=== PATIENT | male | born 1945 | race Two or more races ===

== ENCOUNTER 2024-07-03 14:46 | Inpatient (IN) | payer MEDICARE, OTHER ==
[~2024-07-03] VITALS: Ht 172.7 cm; Wt 110.9 kg
[2024-07-03] MEDS: IV NORMAL SALINE 1000 ML BAG IV ONE (14:59)
[2024-07-03 15:03] LABS: ABG BASE EXCESS 4.9 mmol/L (-2.0-3.0); ABG HCO3 34.7 mmol/L (21.0-28.0); ABG PCO2 74.4 mmHg (35.0-48.0); ABG PH 7.286 (7.350-7.450); ABG PO2 129.1 mmHg (83.0-108.0); ABG TOTAL HEMOGLOBIN 16.2 G/dL (13.5-17.5); AaDO2 98.1 mmHg; COHb 1.2 % (0.5-1.5); MetHb 0.2 % (0.0-1.5); O2Hb 97.2 % (94.0-98.0)
[2024-07-03 15:09] LABS: BASOPHILS % (AUTO) 0.2 % (0.0-2.0); EOSINOPHILS % (AUTO) 0.6 % (0.0-7.0); HEMATOCRIT 46.2 % (36.7-47.1); HEMOGLOBIN 15.2 g/dL (12.5-16.3); LYMPHOCYTES # (AUTO) 0.6 K/uL (0.8-4.8); LYMPHOCYTES % (AUTO) 15.2 % (20.5-51.5); MEAN CORPUSCULAR HEMOGLOBIN 28.7 uug (23.8-33.4); MEAN CORPUSCULAR HGB CONC 33 g/dL (32.5-36.3); MEAN CORPUSCULAR VOLUME 87.4 fL (73.0-96.2); MONOCYTES # (AUTO) 0.4 K/uL (0.1-1.30); MONOCYTES % (AUTO) 10.7 % (0.0-11.0); NEUTROPHILS # (AUTO) 2.9 K/uL (1.8-8.9); NEUTROPHILS % (AUTO) 73.3 % (38.5-71.5); PLATELET COUNT (AUTO) 101 K/uL (152-348); RED BLOOD CELL COUNT(AUTO) 5.28 MIL/uL (4.06-5.63); RED CELL DISTRIBUTION WIDTH 14.6 % (12.1-16.2)
[2024-07-03 15:28] LABS: CALCIUM 8.2 mg/dL (8.5-10.1); CARBON DIOXIDE 36 mmol/L (21-32); CHLORIDE 100 mmol/L (98-107); CREATININE 0.9 mg/dL (0.6-1.3); GLUCOSE 107 mg/dL (74-106); POTASSIUM 4.4 mmol/L (3.5-5.1); SODIUM SERUM 139 mmol/L (136-145); UREA NITROGEN, BLOOD 12 mg/dL (7-18)
[2024-07-03 15:34] LABS: DIFFERENTIAL COMMENT 1
[2024-07-03 15:41] LABS: ALANINE AMINOTRANSFERASE 25 U/L (16-63); ALBUMIN 2.6 g/dL (3.4-5.0); ALKALINE PHOSPHATASE 88 U/L (50-136); ASPARTATE AMINOTRANSFERASE 16 U/L (15-37); BILIRUBIN,DIRECT 0.2 mg/dL (0.0-0.2); BILIRUBIN,TOTAL 0.5 mg/dL (0.2-1.0); NT-PRO BNP 1760 pg/mL (0-125); TOTAL PROTEIN, SERUM 7.1 g/dL (6.4-8.2)
[2024-07-03] MEDS ORDERED: methylPREDNISolone SOD SUCC 125 MG/2 ML VIAL ONE (16:38)
[2024-07-03] MEDS: methylPREDNISolone SOD SUCC 125 MG/2 ML VIAL IV ONE (16:46)
[2024-07-03 16:52] LABS: ABG HCO3 33.2 mmol/L (21.0-28.0); ABG PCO2 77.6 mmHg (35.0-48.0); ABG PH 7.249 (7.350-7.450); ABG PO2 183.6 mmHg (83.0-108.0); ABG SITE LEFT RADIAL; ABG TOTAL HEMOGLOBIN 15.8 G/dL (13.5-17.5); COHb 0.4 % (0.5-1.5); MetHb 0.4 % (0.0-1.5); O2Hb 98.3 % (94.0-98.0)
[2024-07-03] MEDS: CEFTRIAXONE 2 G in IV DEXTROSE 5% 100 ML IV ONE (17:15)
[2024-07-03 17:55] LABS: *BILIRUBIN,URIN NEGATIVE (NEGATIVE); *BLOOD, URINE 2+ (NEGATIVE); *CLARITY,URINE CLEAR (CLEAR); *COLOR,URINE YELLOW (YELLOW); *KETONES,URINE TRACE (NEGATIVE); LEUKOCYTE ESTERASE ,URINE NEGATIVE (NEGATIVE); NITRITE, URINE NEGATIVE (NEGATIVE); UGLUCOSE NEGATIVE (NEGATIVE)
[2024-07-03] MEDS ORDERED: REMEDY ESSENTIAL ZINC PASTE 113 GM TP PRN (18:00)
[2024-07-03 18:13] LABS: *PROTEIN,URINE 3+ (NEGATIVE)
[2024-07-03] MEDS ORDERED: AZITHROMYCIN 500MG/ D5W 250ML IVPB **ER PYXIS ONLY IV ONE ×2 (18:14→21:21)
[2024-07-03] MEDS: ENOXAPARIN SODIUM 40 MG/0.4 ML DISP.SYRIN SQ SCH (18:15)
[2024-07-03] MEDS: AZITHROMYCIN IV 500 MG in IV DEXTROSE 5% 250 ML IV SCH (18:15)
[2024-07-03 18:26] LABS: BACTERIA,URINE FEW /HPF (NONE SEEN); RBC,URINE 20-50 /HPF (0-3); SQUAMOUS EPITHELIAL CELL,UR FEW /HPF (NONE SEEN); WBC,URINE 0-3 /HPF (0-3)
[2024-07-03] MEDS ORDERED: AZITHROMYCIN IV 500 MG in IV DEXTROSE 5% 250 ML IV SCH (19:31)
[2024-07-03] MEDS ORDERED: methylPREDNISolone SOD SUCC 40 MG/ML VIAL IV SCH (22:00)
[2024-07-03] MEDS ORDERED: ALBU2.5V38 NEB (22:08)
[2024-07-03] MEDS ORDERED: LOSA50TA39 PO (22:08)
[2024-07-03] MEDS ORDERED: IPRA0.2S48 NEB (22:08)
[2024-07-03] MEDS ORDERED: ATOR40TA PO (22:08)
[2024-07-03] MEDS ORDERED: SITA50TA GT (22:08)
[2024-07-03] MEDS ORDERED: LEVO100T10 PO (22:08)
[2024-07-03] MEDS ORDERED: FURO40TA5 PO (22:08)
[2024-07-03] MEDS ORDERED: PENT400T17 PO (22:08)
[2024-07-03] MEDS ORDERED: CELE200C PO (22:08)
[2024-07-03] MEDS: FUROSEMIDE 40 MG/4 ML VIAL IV ONE (22:15)
[2024-07-03] MEDS ORDERED: INSULIN REGULAR, HUMAN 1000 UNIT/10 ML VIAL SQ PRN (22:30)
[2024-07-03] MEDS ORDERED: DEXTROSE 50% 50 ML DISP.SYRIN IV PRN (22:30)
[2024-07-03 23:15] VITALS: BP 132/78; TEMP 98.6; O2SAT 98
[2024-07-03 23:29] LABS: ABG BASE EXCESS 2.6 mmol/L (-2.0-3.0); ABG HCO3 32.1 mmol/L (21.0-28.0); ABG PCO2 70.8 mmHg (35.0-48.0); ABG PH 7.274 (7.350-7.450); ABG PO2 134.1 mmHg (83.0-108.0); ABG SITE RIGHT RADIAL; ABG TOTAL HEMOGLOBIN 16.5 G/dL (13.5-17.5); AaDO2 98.2 mmHg; COHb 0.7 % (0.5-1.5); MetHb 0.4 % (0.0-1.5); O2Hb 97.6 % (94.0-98.0)
[2024-07-03 23:58] VITALS: BP 139/73; TEMP 98.5; O2SAT 96
[2024-07-04] VITALS (27 sets, daily range): BP systolic 107–135; BP diastolic 57–95; TEMP 98–98.6; O2SAT 95–100
[2024-07-04] MEDS: FUROSEMIDE 40 MG/4 ML VIAL IV ONE ×2 (00:34→09:16)
[2024-07-04] MEDS: BLOOD SUGAR DIAGNOSTIC 1 EACH STRIP VI SCH ×2 (00:44→20:57)
[2024-07-04 04:35] LABS: BASOPHILS % (AUTO) 0.2 % (0.0-2.0); HEMATOCRIT 44.8 % (36.7-47.1); LYMPHOCYTES # (AUTO) 0.5 K/uL (0.8-4.8); LYMPHOCYTES % (AUTO) 20.9 % (20.5-51.5); MEAN CORPUSCULAR HEMOGLOBIN 29.3 uug (23.8-33.4); MEAN CORPUSCULAR HGB CONC 34 g/dL (32.5-36.3); MEAN CORPUSCULAR VOLUME 87.4 fL (73.0-96.2); MONOCYTES # (AUTO) 0.1 K/uL (0.1-1.30); MONOCYTES % (AUTO) 3.9 % (0.0-11.0); NEUTROPHILS # (AUTO) 1.8 K/uL (1.8-8.9); PLATELET COUNT (AUTO) 98 K/uL (152-348); RED BLOOD CELL COUNT(AUTO) 5.13 MIL/uL (4.06-5.63); RED CELL DISTRIBUTION WIDTH 14.5 % (12.1-16.2); WHITE BLOOD COUNT (AUTO) 2.4 K/uL (3.6-10.2)
[2024-07-04 04:39] LABS: DIFFERENTIAL COMMENT 1
[2024-07-04 04:53] LABS: CALCIUM 8.1 mg/dL (8.5-10.1); CARBON DIOXIDE 35 mmol/L (21-32); CHLORIDE 104 mmol/L (98-107); CREATININE 0.8 mg/dL (0.6-1.3); GLUCOSE 145 mg/dL (74-106); MAGNESIUM 1.9 mg/dL (1.8-2.4); PHOSPHOROUS 4.9 mg/dL (2.5-4.9); POTASSIUM 4.4 mmol/L (3.5-5.1); SODIUM SERUM 143 mmol/L (136-145); UREA NITROGEN, BLOOD 15 mg/dL (7-18)
[2024-07-04] MEDS: DILTIAZEM HCL 25 MG IV IV ONE (06:43)
[2024-07-04] MEDS: ENOXAPARIN SODIUM 40 MG/0.4 ML DISP.SYRIN SQ SCH (09:00)
[2024-07-04] MEDS: methylPREDNISolone SOD SUCC 40 MG/ML VIAL IV SCH (09:15)
[2024-07-04] MEDS: PANTOPRAZOLE SODIUM 40 MG VIAL IV SCH (09:15)
[2024-07-04] MEDS: CEFTRIAXONE 1 G in IV DEXTROSE 5% 50 ML IV SCH (09:16)
[2024-07-04] MEDS ORDERED: DEXTROSE 50% 50 ML DISP.SYRIN IV PRN (12:45)
[2024-07-04] MEDS: LEVALBUTEROL HCL NEB 0.63 MG/3 ML NEBU NEB SCH (13:30)
[2024-07-04] MEDS: IPRATROPIUM BROMIDE 0.5 MG/2.5 ML NEBU NEB SCH (13:30)
[2024-07-04] MEDS ORDERED: AMIODARONE HCL IV 450 MG in IV DEXTROSE 5% 250 ML IV SCH (14:45)
[2024-07-04] MEDS: AMIODARONE HCL IV 150 MG in IV DEXTROSE 5% 100 ML IV ONE (15:34)
[2024-07-04] MEDS: AMIODARONE HCL IV 450 MG in IV DEXTROSE 5% 250 ML IV PRN (15:35)
[2024-07-04] MEDS: AZITHROMYCIN IV 500 MG in IV DEXTROSE 5% 250 ML IV SCH (20:46)
[2024-07-04] MEDS: INSULIN REGULAR, HUMAN 1000 UNIT/10 ML VIAL SQ PRN (21:06)
[2024-07-05] VITALS (25 sets, daily range): BP systolic 104–136; BP diastolic 64–94; TEMP 98–98.6; O2SAT 94–100
[2024-07-05 05:35] LABS: BASOPHILS % (AUTO) 0.1 % (0.0-2.0); EOSINOPHILS % (AUTO) 0.1 % (0.0-7.0); HEMATOCRIT 43.3 % (36.7-47.1); HEMOGLOBIN 14.7 g/dL (12.5-16.3); LYMPHOCYTES # (AUTO) 1.2 K/uL (0.8-4.8); LYMPHOCYTES % (AUTO) 19.2 % (20.5-51.5); MEAN CORPUSCULAR HEMOGLOBIN 29.3 uug (23.8-33.4); MEAN CORPUSCULAR HGB CONC 34 g/dL (32.5-36.3); MEAN CORPUSCULAR VOLUME 86.4 fL (73.0-96.2); MONOCYTES # (AUTO) 0.6 K/uL (0.1-1.30); MONOCYTES % (AUTO) 9.9 % (0.0-11.0); NEUTROPHILS # (AUTO) 4.5 K/uL (1.8-8.9); NEUTROPHILS % (AUTO) 70.7 % (38.5-71.5); PLATELET COUNT (AUTO) 115 K/uL (152-348); RED BLOOD CELL COUNT(AUTO) 5.01 MIL/uL (4.06-5.63); RED CELL DISTRIBUTION WIDTH 14.2 % (12.1-16.2); WHITE BLOOD COUNT (AUTO) 6.3 K/uL (3.6-10.2)
[2024-07-05 05:48] LABS: CALCIUM 8.2 mg/dL (8.5-10.1); CARBON DIOXIDE 36 mmol/L (21-32); CHLORIDE 100 mmol/L (98-107); GLUCOSE 130 mg/dL (74-106); POTASSIUM 4.4 mmol/L (3.5-5.1); SODIUM SERUM 139 mmol/L (136-145); UREA NITROGEN, BLOOD 31 mg/dL (7-18)
[2024-07-05 05:59] LABS: DIFFERENTIAL COMMENT 1
[2024-07-05 08:34] LABS: ABG BASE EXCESS 7.1 mmol/L (-2.0-3.0); ABG HCO3 34.4 mmol/L (21.0-28.0); ABG PCO2 58.7 mmHg (35.0-48.0); ABG PH 7.386 (7.350-7.450); ABG SITE RIGHT RADIAL; ABG TOTAL HEMOGLOBIN 15.9 G/dL (13.5-17.5); AaDO2 98.6 mmHg; COHb 0.6 % (0.5-1.5); MetHb 0.3 % (0.0-1.5); O2Hb 97.9 % (94.0-98.0)
[2024-07-05] MEDS: FUROSEMIDE 40 MG/4 ML VIAL IV SCH ×2 (09:27→13:00)
[2024-07-05] MEDS ORDERED: APIX5TAB PO (11:29)
[2024-07-05] MEDS: AMIODARONE HCL IV 150 MG in IV DEXTROSE 5% 100 ML IV ONE (13:52)
[2024-07-05] MEDS ORDERED: IPRATROPIUM BROMIDE 0.5 MG/2.5 ML NEBU NEB PRN (14:45)
[2024-07-05] MEDS: MAGNESIUM HYDROXIDE 30 ML LIQUID UDC PO PRN (17:35)
[2024-07-05] MEDS: APIXABAN 5 MG TABLET PO SCH (20:20)
[2024-07-06] VITALS (18 sets, daily range): BP systolic 90–144; BP diastolic 53–99; TEMP 97.5–98.8; O2SAT 93–100
[2024-07-06 05:23] LABS: BASOPHILS % (AUTO) 0.2 % (0.0-2.0); EOSINOPHILS % (AUTO) 0.1 % (0.0-7.0); HEMATOCRIT 44.3 % (36.7-47.1); HEMOGLOBIN 15.2 g/dL (12.5-16.3); LYMPHOCYTES # (AUTO) 1.4 K/uL (0.8-4.8); LYMPHOCYTES % (AUTO) 19.8 % (20.5-51.5); MEAN CORPUSCULAR HEMOGLOBIN 29.5 uug (23.8-33.4); MEAN CORPUSCULAR HGB CONC 34 g/dL (32.5-36.3); MEAN CORPUSCULAR VOLUME 86.2 fL (73.0-96.2); MONOCYTES # (AUTO) 0.5 K/uL (0.1-1.30); MONOCYTES % (AUTO) 7.7 % (0.0-11.0); NEUTROPHILS # (AUTO) 5.1 K/uL (1.8-8.9); NEUTROPHILS % (AUTO) 72.2 % (38.5-71.5); PLATELET COUNT (AUTO) 128 K/uL (152-348); RED BLOOD CELL COUNT(AUTO) 5.14 MIL/uL (4.06-5.63); RED CELL DISTRIBUTION WIDTH 14.4 % (12.1-16.2); WHITE BLOOD COUNT (AUTO) 7.1 K/uL (3.6-10.2)
[2024-07-06 05:31] LABS: CALCIUM 8.4 mg/dL (8.5-10.1); CARBON DIOXIDE 40 mmol/L (21-32); CHLORIDE 99 mmol/L (98-107); CREATININE 1.1 mg/dL (0.6-1.3); GLUCOSE 124 mg/dL (74-106); PHOSPHOROUS 3.4 mg/dL (2.5-4.9); SODIUM SERUM 141 mmol/L (136-145); UREA NITROGEN, BLOOD 32 mg/dL (7-18)
[2024-07-06 05:58] LABS: DIFFERENTIAL COMMENT 1
[2024-07-06] MEDS: LEVOTHYROXINE SODIUM 100 MCG TABLET PO SCH (06:59)
[2024-07-06] MEDS: MIRALAX 17 GM POWD.PACK PO SCH (08:41)
[2024-07-06] MEDS: LOSARTAN POTASSIUM 50 MG TABLET PO SCH (08:42)
[2024-07-06] MEDS: LINAGLIPTIN 5 MG TABLET GT SCH (08:42)
[2024-07-06] MEDS: PENTOXIFYLLINE 400 MG TABLET.SA PO SCH (08:43)
[2024-07-06] MEDS: CELECOXIB 200 MG CAPSULE PO SCH (08:43)
[2024-07-06] MEDS: CEFTRIAXONE 2 G in IV DEXTROSE 5% 100 ML IV SCH (08:54)
[2024-07-06] MEDS ORDERED: Medication Not On Formulary EA (Sitagliptin Phosphate (Januvia) 50 MG) GT SCH (09:00)
[2024-07-06] MEDS: ONDANSETRON 4 MG/2 ML VIAL IV PRN (10:39)
[2024-07-06 17:44] LABS: *BILIRUBIN,URIN NEGATIVE (NEGATIVE); *BLOOD, URINE 2+ (NEGATIVE); *CLARITY,URINE CLEAR (CLEAR); *COLOR,URINE YELLOW (YELLOW); *KETONES,URINE NEGATIVE (NEGATIVE); *PROTEIN,URINE NEGATIVE (NEGATIVE); *UROBILINOGEN,URINE 0.2 E.U./dl (NORMAL); LEUKOCYTE ESTERASE ,URINE NEGATIVE (NEGATIVE); NITRITE, URINE NEGATIVE (NEGATIVE); UGLUCOSE NEGATIVE (NEGATIVE)
[2024-07-06 17:47] LABS: WBC,URINE 0-3 /HPF (0-3)
[2024-07-06] MEDS: AZITHROMYCIN 250 MG TABLET PO SCH (20:33)
[2024-07-06] MEDS: ATORVASTATIN 40 MG TABLET PO SCH (20:45)
[2024-07-07] VITALS (15 sets, daily range): BP systolic 111–142; BP diastolic 49–68; TEMP 97–98.5; O2SAT 96–100
[2024-07-07] MEDS: PANTOPRAZOLE SODIUM 40 MG TABLET.DR PO SCH (06:19)
[2024-07-07 07:00] LABS: BASOPHILS % (AUTO) 0.1 % (0.0-2.0); EOSINOPHILS % (AUTO) 0.2 % (0.0-7.0); HEMATOCRIT 45.6 % (36.7-47.1); HEMOGLOBIN 15.2 g/dL (12.5-16.3); LYMPHOCYTES # (AUTO) 1.3 K/uL (0.8-4.8); LYMPHOCYTES % (AUTO) 18.9 % (20.5-51.5); MEAN CORPUSCULAR HEMOGLOBIN 29.1 uug (23.8-33.4); MEAN CORPUSCULAR HGB CONC 33 g/dL (32.5-36.3); MEAN CORPUSCULAR VOLUME 87.2 fL (73.0-96.2); MONOCYTES # (AUTO) 0.5 K/uL (0.1-1.30); MONOCYTES % (AUTO) 6.5 % (0.0-11.0); NEUTROPHILS # (AUTO) 5.3 K/uL (1.8-8.9); NEUTROPHILS % (AUTO) 74.3 % (38.5-71.5); PLATELET COUNT (AUTO) 143 K/uL (152-348); RED BLOOD CELL COUNT(AUTO) 5.23 MIL/uL (4.06-5.63); RED CELL DISTRIBUTION WIDTH 14.4 % (12.1-16.2); WHITE BLOOD COUNT (AUTO) 7.1 K/uL (3.6-10.2)
[2024-07-07 07:04] LABS: CALCIUM 8.6 mg/dL (8.5-10.1); CARBON DIOXIDE 40 mmol/L (21-32); CHLORIDE 101 mmol/L (98-107); CREATININE 0.8 mg/dL (0.6-1.3); GLUCOSE 110 mg/dL (74-106); MAGNESIUM 2.4 mg/dL (1.8-2.4); PHOSPHOROUS 3.8 mg/dL (2.5-4.9); POTASSIUM 4.3 mmol/L (3.5-5.1); SODIUM SERUM 141 mmol/L (136-145); UREA NITROGEN, BLOOD 25 mg/dL (7-18)
[2024-07-07 08:06] LABS: ABG BASE EXCESS 9.6 mmol/L (-2.0-3.0); ABG HCO3 36.4 mmol/L (21.0-28.0); ABG PCO2 56.9 mmHg (35.0-48.0); ABG PH 7.424 (7.350-7.450); ABG PO2 89.8 mmHg (83.0-108.0); ABG TOTAL HEMOGLOBIN 16.2 G/dL (13.5-17.5); AaDO2 96.9 mmHg; COHb 1.1 % (0.5-1.5); MetHb 0.1 % (0.0-1.5); O2Hb 95.7 % (94.0-98.0)
[2024-07-07 08:21] LABS: DIFFERENTIAL COMMENT 1
[2024-07-07] MEDS: ACETAzolamide SODIUM 500 MG VIAL IV SCH (10:34)
[2024-07-08] VITALS (16 sets, daily range): BP systolic 104–124; BP diastolic 52–64; TEMP 97.5–98.7; O2SAT 95–100
[2024-07-08 06:57] LABS: BASOPHILS % (AUTO) 0.2 % (0.0-2.0); EOSINOPHILS # (AUTO) 0.2 K/uL (0.0-0.7); EOSINOPHILS % (AUTO) 1.9 % (0.0-7.0); HEMATOCRIT 35.3 % (36.7-47.1); HEMOGLOBIN 11.7 g/dL (12.5-16.3); LYMPHOCYTES # (AUTO) 1.1 K/uL (0.8-4.8); LYMPHOCYTES % (AUTO) 9.9 % (20.5-51.5); MEAN CORPUSCULAR HEMOGLOBIN 27.6 uug (23.8-33.4); MEAN CORPUSCULAR HGB CONC 33 g/dL (32.5-36.3); MEAN CORPUSCULAR VOLUME 83.1 fL (73.0-96.2); MONOCYTES # (AUTO) 0.5 K/uL (0.1-1.30); MONOCYTES % (AUTO) 4.6 % (0.0-11.0); NEUTROPHILS # (AUTO) 9.1 K/uL (1.8-8.9); NEUTROPHILS % (AUTO) 83.4 % (38.5-71.5); PLATELET COUNT (AUTO) 219 K/uL (152-348); RED BLOOD CELL COUNT(AUTO) 4.25 MIL/uL (4.06-5.63); RED CELL DISTRIBUTION WIDTH 16.7 % (12.1-16.2); WHITE BLOOD COUNT (AUTO) 10.9 K/uL (3.6-10.2)
[2024-07-08 07:17] LABS: DIFFERENTIAL COMMENT 1
[2024-07-08 07:19] LABS: ALANINE AMINOTRANSFERASE 65 U/L (16-63); ALBUMIN 1.7 g/dL (3.4-5.0); ALKALINE PHOSPHATASE 83 U/L (50-136); ASPARTATE AMINOTRANSFERASE 35 U/L (15-37); BILIRUBIN,DIRECT 0.2 mg/dL (0.0-0.2); BILIRUBIN,TOTAL 0.6 mg/dL (0.2-1.0); CALCIUM 8.3 mg/dL (8.5-10.1); CARBON DIOXIDE 28 mmol/L (21-32); CHLORIDE 108 mmol/L (98-107); CREATININE 0.6 mg/dL (0.6-1.3); GLUCOSE 106 mg/dL (74-106); POTASSIUM 3.9 mmol/L (3.5-5.1); SODIUM SERUM 144 mmol/L (136-145); THYROID STIMULATING HORMONE 0.906 mIU/mL (0.358-3.740); TOTAL PROTEIN, SERUM 5.5 g/dL (6.4-8.2); UREA NITROGEN, BLOOD 21 mg/dL (7-18)
[2024-07-08 07:40] LABS: PHOSPHOROUS 3.5 mg/dL (2.5-4.9)
[2024-07-08 16:20] LABS: CHOLESTEROL 86 mg/dL (<200); HDL CHOLESTEROL 32 mg/dL (40-60); TRIGLYCERIDES 100 MG/DL (30-150)
[2024-07-08] MEDS: PROTEIN SUPPLEMENT (PROSTAT) 30 ML LIQUID PO SCH (16:21)
[2024-07-09] VITALS (13 sets, daily range): BP systolic 103–129; BP diastolic 50–89; TEMP 97.4–98.2; O2SAT 94–100
[2024-07-09 07:52] LABS: ABG BASE EXCESS 1.6 mmol/L (-2.0-3.0); ABG HCO3 28.4 mmol/L (21.0-28.0); ABG PCO2 52.5 mmHg (35.0-48.0); ABG PH 7.351 (7.350-7.450); ABG PO2 95.9 mmHg (83.0-108.0); ABG SITE RIGHT RADIAL; ABG TOTAL HEMOGLOBIN 16.5 G/dL (13.5-17.5); AaDO2 96.9 mmHg; COHb 0.4 % (0.5-1.5); MetHb 0.2 % (0.0-1.5); O2Hb 96.7 % (94.0-98.0)
[2024-07-09 08:04] LABS: BASOPHILS % (AUTO) 0.1 % (0.0-2.0); EOSINOPHILS # (AUTO) 0.1 K/uL (0.0-0.7); EOSINOPHILS % (AUTO) 1.2 % (0.0-7.0); HEMATOCRIT 47.5 % (36.7-47.1); HEMOGLOBIN 15.7 g/dL (12.5-16.3); LYMPHOCYTES # (AUTO) 1.4 K/uL (0.8-4.8); LYMPHOCYTES % (AUTO) 20.9 % (20.5-51.5); MEAN CORPUSCULAR HGB CONC 33 g/dL (32.5-36.3); MEAN CORPUSCULAR VOLUME 87.8 fL (73.0-96.2); MONOCYTES # (AUTO) 0.4 K/uL (0.1-1.30); MONOCYTES % (AUTO) 6.7 % (0.0-11.0); NEUTROPHILS # (AUTO) 4.7 K/uL (1.8-8.9); NEUTROPHILS % (AUTO) 71.1 % (38.5-71.5); PLATELET COUNT (AUTO) 165 K/uL (152-348); RED BLOOD CELL COUNT(AUTO) 5.41 MIL/uL (4.06-5.63); RED CELL DISTRIBUTION WIDTH 14.4 % (12.1-16.2); WHITE BLOOD COUNT (AUTO) 6.6 K/uL (3.6-10.2)
[2024-07-09 08:31] LABS: DIFFERENTIAL COMMENT 1
[2024-07-09] MEDS: ALBUTEROL SULFATE 1.25 MG/3 ML NEBU NEB SCH (08:33)
[2024-07-09 08:38] LABS: CALCIUM 8.5 mg/dL (8.5-10.1); CREATININE 0.8 mg/dL (0.6-1.3); GLUCOSE 97 mg/dL (74-106); MAGNESIUM 2.3 mg/dL (1.8-2.4); PHOSPHOROUS 3.8 mg/dL (2.5-4.9); UREA NITROGEN, BLOOD 25 mg/dL (7-18)
[2024-07-09 10:38] LABS: CARBON DIOXIDE 26 mmol/L (21-32); CHLORIDE 107 mmol/L (98-107); POTASSIUM 4.3 mmol/L (3.5-5.1); SODIUM SERUM 143 mmol/L (136-145)
[2024-07-09] MEDS: AMIODARONE HCL IV 150 MG in IV DEXTROSE 5% 100 ML IV ONE (16:23)
[2024-07-09] MEDS: AMIODARONE HCL IV 450 MG in IV DEXTROSE 5% 250 ML IV PRN (16:34)
[2024-07-10] VITALS (12 sets, daily range): BP systolic 104–112; BP diastolic 54–68; TEMP 97.2–98.6; O2SAT 94–99
[2024-07-10 07:14] LABS: BASOPHILS % (AUTO) 0.1 % (0.0-2.0); EOSINOPHILS # (AUTO) 0.1 K/uL (0.0-0.7); EOSINOPHILS % (AUTO) 0.9 % (0.0-7.0); HEMOGLOBIN 16.7 g/dL (12.5-16.3); LYMPHOCYTES # (AUTO) 1.6 K/uL (0.8-4.8); LYMPHOCYTES % (AUTO) 17.1 % (20.5-51.5); MEAN CORPUSCULAR HEMOGLOBIN 29.6 uug (23.8-33.4); MEAN CORPUSCULAR HGB CONC 34 g/dL (32.5-36.3); MEAN CORPUSCULAR VOLUME 86.6 fL (73.0-96.2); MONOCYTES # (AUTO) 0.5 K/uL (0.1-1.30); MONOCYTES % (AUTO) 6.1 % (0.0-11.0); NEUTROPHILS # (AUTO) 6.9 K/uL (1.8-8.9); NEUTROPHILS % (AUTO) 75.8 % (38.5-71.5); PLATELET COUNT (AUTO) 191 K/uL (152-348); RED BLOOD CELL COUNT(AUTO) 5.66 MIL/uL (4.06-5.63); RED CELL DISTRIBUTION WIDTH 14.6 % (12.1-16.2); WHITE BLOOD COUNT (AUTO) 9.1 K/uL (3.6-10.2)
[2024-07-10 07:36] LABS: DIFFERENTIAL COMMENT 1
[2024-07-10 07:52] LABS: CALCIUM 8.5 mg/dL (8.5-10.1); CARBON DIOXIDE 26 mmol/L (21-32); CHLORIDE 109 mmol/L (98-107); GLUCOSE 106 mg/dL (74-106); MAGNESIUM 2.2 mg/dL (1.8-2.4); PHOSPHOROUS 3.4 mg/dL (2.5-4.9); SODIUM SERUM 145 mmol/L (136-145); UREA NITROGEN, BLOOD 29 mg/dL (7-18)
[2024-07-10] MEDS: methylPREDNISolone SOD SUCC 40 MG/ML VIAL IV SCH (09:20)
[2024-07-10] MEDS: AMIODARONE HCL 200 MG TABLET PO SCH (20:32)
[2024-07-11] VITALS (12 sets, daily range): BP systolic 102–112; BP diastolic 58–80; TEMP 97.5–98.6; O2SAT 96–100
[2024-07-11 07:00] LABS: BASOPHILS % (AUTO) 0.2 % (0.0-2.0); EOSINOPHILS # (AUTO) 0.1 K/uL (0.0-0.7); EOSINOPHILS % (AUTO) 1.1 % (0.0-7.0); HEMATOCRIT 50.6 % (36.7-47.1); HEMOGLOBIN 17.2 g/dL (12.5-16.3); LYMPHOCYTES # (AUTO) 1.4 K/uL (0.8-4.8); LYMPHOCYTES % (AUTO) 14.6 % (20.5-51.5); MEAN CORPUSCULAR HEMOGLOBIN 29.3 uug (23.8-33.4); MEAN CORPUSCULAR HGB CONC 34 g/dL (32.5-36.3); MEAN CORPUSCULAR VOLUME 86.2 fL (73.0-96.2); MONOCYTES # (AUTO) 0.6 K/uL (0.1-1.30); MONOCYTES % (AUTO) 6.4 % (0.0-11.0); NEUTROPHILS # (AUTO) 7.6 K/uL (1.8-8.9); NEUTROPHILS % (AUTO) 77.7 % (38.5-71.5); PLATELET COUNT (AUTO) 197 K/uL (152-348); RED BLOOD CELL COUNT(AUTO) 5.87 MIL/uL (4.06-5.63); RED CELL DISTRIBUTION WIDTH 14.5 % (12.1-16.2); WHITE BLOOD COUNT (AUTO) 9.8 K/uL (3.6-10.2)
[2024-07-11 07:04] LABS: DIFFERENTIAL COMMENT 1
[2024-07-11 07:26] LABS: CALCIUM 8.2 mg/dL (8.5-10.1); CARBON DIOXIDE 28 mmol/L (21-32); CHLORIDE 107 mmol/L (98-107); CREATININE 0.8 mg/dL (0.6-1.3); GLUCOSE 103 mg/dL (74-106); MAGNESIUM 2.2 mg/dL (1.8-2.4); PHOSPHOROUS 3.5 mg/dL (2.5-4.9); POTASSIUM 3.6 mmol/L (3.5-5.1); SODIUM SERUM 141 mmol/L (136-145); UREA NITROGEN, BLOOD 26 mg/dL (7-18)
[2024-07-11] MEDS: POTASSIUM CHLORIDE 20 MEQ TAB.PRT.SR PO ONE (09:51)
[2024-07-11] MEDS: ALBUTEROL SULFATE 2.5 MG/3 ML NEBU NEB PRN (13:22)
[2024-07-11] MEDS: ACETAMINOPHEN 325 MG TABLET PO PRN (20:44)
[2024-07-12] VITALS (14 sets, daily range): BP systolic 100–119; BP diastolic 61–86; TEMP 97.5–98.3; O2SAT 94–99
[2024-07-12 07:01] LABS: BASOPHILS % (AUTO) 0.1 % (0.0-2.0); EOSINOPHILS # (AUTO) 0.1 K/uL (0.0-0.7); EOSINOPHILS % (AUTO) 0.8 % (0.0-7.0); HEMATOCRIT 49.7 % (36.7-47.1); HEMOGLOBIN 16.8 g/dL (12.5-16.3); LYMPHOCYTES # (AUTO) 1.4 K/uL (0.8-4.8); LYMPHOCYTES % (AUTO) 14.6 % (20.5-51.5); MEAN CORPUSCULAR HEMOGLOBIN 29.5 uug (23.8-33.4); MEAN CORPUSCULAR HGB CONC 34 g/dL (32.5-36.3); MEAN CORPUSCULAR VOLUME 87.2 fL (73.0-96.2); MONOCYTES # (AUTO) 0.7 K/uL (0.1-1.30); NEUTROPHILS # (AUTO) 7.7 K/uL (1.8-8.9); NEUTROPHILS % (AUTO) 77.5 % (38.5-71.5); PLATELET COUNT (AUTO) 200 K/uL (152-348); RED BLOOD CELL COUNT(AUTO) 5.71 MIL/uL (4.06-5.63); RED CELL DISTRIBUTION WIDTH 14.7 % (12.1-16.2); WHITE BLOOD COUNT (AUTO) 9.9 K/uL (3.6-10.2)
[2024-07-12 07:05] LABS: DIFFERENTIAL COMMENT 1
[2024-07-12 07:19] LABS: ALANINE AMINOTRANSFERASE 46 U/L (16-63); ALBUMIN 2.7 g/dL (3.4-5.0); ALKALINE PHOSPHATASE 90 U/L (50-136); ASPARTATE AMINOTRANSFERASE 17 U/L (15-37); BILIRUBIN,TOTAL 0.6 mg/dL (0.2-1.0); CARBON DIOXIDE 25 mmol/L (21-32); CHLORIDE 110 mmol/L (98-107); CREATININE 0.9 mg/dL (0.6-1.3); GLUCOSE 110 mg/dL (74-106); MAGNESIUM 2.1 mg/dL (1.8-2.4); PHOSPHOROUS 3.5 mg/dL (2.5-4.9); SODIUM SERUM 144 mmol/L (136-145); UREA NITROGEN, BLOOD 27 mg/dL (7-18)
[2024-07-12] MEDS: predniSONE 10 MG TABLET PO SCH (09:23)
[2024-07-12] MEDS: TAMSULOSIN HCL 0.4 MG CAP.SR.24H PO ONE (11:05)
[2024-07-12] MEDS: ATORVASTATIN 10 MG TABLET PO SCH (20:49)
[2024-07-13] VITALS (12 sets, daily range): BP systolic 100–136; BP diastolic 60–92; TEMP 97.5–98.2; O2SAT 95–99
[2024-07-13 05:40] LABS: ABG BASE EXCESS -2.1 mmol/L (-2.0-3.0); ABG HCO3 23.2 mmol/L (21.0-28.0); ABG PCO2 41.9 mmHg (35.0-48.0); ABG PH 7.362 (7.350-7.450); ABG PO2 82.3 mmHg (83.0-108.0); ABG SITE RIGHT BRACHIAL; ABG TOTAL HEMOGLOBIN 17.8 G/dL (13.5-17.5); AaDO2 95.8 mmHg; COHb 0.4 % (0.5-1.5); MetHb 0.3 % (0.0-1.5); O2Hb 95.4 % (94.0-98.0)
[2024-07-13 07:08] LABS: BASOPHILS % (AUTO) 0.2 % (0.0-2.0); EOSINOPHILS # (AUTO) 0.1 K/uL (0.0-0.7); EOSINOPHILS % (AUTO) 1.6 % (0.0-7.0); HEMATOCRIT 47.1 % (36.7-47.1); HEMOGLOBIN 16.1 g/dL (12.5-16.3); LYMPHOCYTES # (AUTO) 1.8 K/uL (0.8-4.8); LYMPHOCYTES % (AUTO) 20.1 % (20.5-51.5); MEAN CORPUSCULAR HEMOGLOBIN 29.8 uug (23.8-33.4); MEAN CORPUSCULAR HGB CONC 34 g/dL (32.5-36.3); MONOCYTES # (AUTO) 0.6 K/uL (0.1-1.30); MONOCYTES % (AUTO) 7.4 % (0.0-11.0); NEUTROPHILS # (AUTO) 6.2 K/uL (1.8-8.9); NEUTROPHILS % (AUTO) 70.7 % (38.5-71.5); PLATELET COUNT (AUTO) 196 K/uL (152-348); RED BLOOD CELL COUNT(AUTO) 5.41 MIL/uL (4.06-5.63); RED CELL DISTRIBUTION WIDTH 14.6 % (12.1-16.2); WHITE BLOOD COUNT (AUTO) 8.7 K/uL (3.6-10.2)
[2024-07-13 07:24] LABS: DIFFERENTIAL COMMENT 1
[2024-07-13 07:28] LABS: CALCIUM 8.4 mg/dL (8.5-10.1); CARBON DIOXIDE 24 mmol/L (21-32); CHLORIDE 109 mmol/L (98-107); GLUCOSE 100 mg/dL (74-106); MAGNESIUM 2.2 mg/dL (1.8-2.4); PHOSPHOROUS 3.6 mg/dL (2.5-4.9); POTASSIUM 3.7 mmol/L (3.5-5.1); SODIUM SERUM 143 mmol/L (136-145); UREA NITROGEN, BLOOD 29 mg/dL (7-18)
[2024-07-14] VITALS (8 sets, daily range): BP systolic 111–134; BP diastolic 57–83; TEMP 97.6–98; O2SAT 93–99
[2024-07-14] MEDS ORDERED: AMIO200T6 PO (10:24)
[2024-07-14] MEDS ORDERED: AMIODARONE HCL 200 MG TABLET PO SCH (21:00)
[2024-07-15] MEDS ORDERED: predniSONE 10 MG TABLET PO SCH (09:00)
== END 2024-07-14 16:30 | DRG 189 ==
LOC: ER 14:46 → CCU 22:17 → TELE3 07-06 19:19 → MEDSURG3 07-08 10:28 → TELE-TD3 07-09 15:42 → TELE3 07-11 09:00
PROC: 5A09457 Assistance with Respiratory Ventilation, 24-96 Consecutive Hours, Continuous Positive Airway Pressure (ICD-10-PCS; principal; 2024-07-03)
DX: J96.01 Acute respiratory failure with hypoxia (principal); I50.33 Acute on chronic diastolic (congestive) heart failure; E43 Unspecified severe protein-calorie malnutrition; Z68.41 Body mass index [BMI] 40.0-44.9, adult; J44.1 Chronic obstructive pulmonary disease with (acute) exacerbation; J45.901 Unspecified asthma with (acute) exacerbation; D68.59 Other primary thrombophilia; E66.2 Morbid (severe) obesity with alveolar hypoventilation; I48.20 Chronic atrial fibrillation, unspecified; I11.0 Hypertensive heart disease with heart failure; I48.0 Paroxysmal atrial fibrillation; J96.02 Acute respiratory failure with hypercapnia; Z74.09 Other reduced mobility; E03.9 Hypothyroidism, unspecified; Z79.890 Hormone replacement therapy; E78.5 Hyperlipidemia, unspecified; R79.89 Other specified abnormal findings of blood chemistry; E88.09 Other disorders of plasma-protein metabolism, not elsewhere classified; E11.9 Type 2 diabetes mellitus without complications; D69.6 Thrombocytopenia, unspecified; E05.90 Thyrotoxicosis, unspecified without thyrotoxic crisis or storm; Z79.01 Long term (current) use of anticoagulants; Z79.899 Other long term (current) drug therapy; Z79.84 Long term (current) use of oral hypoglycemic drugs
CPT/HCPCS: 36415; 36600; 71045; 82803; 83605; 83735; 84100; 84443; 84484; 85025; 85730; 87040; 93005; 93307; 94640; 94660; 94664; 94760; 99082-TC; A4606; A4663; G0378; J0282; J0456; J0696; J1120; J1650; J1815; J1940; J2405; J2470; J2919; J3490; J3590; J7040; J7050; J7512; J7614; Q0144